=== PATIENT | female | born 2005 | race Caucasian/White ===

== ENCOUNTER 2023-05-27 22:27 | Emergency (ER) | payer OTHER, SELFPAY ==
[2023-05-27 22:35] VITALS: BP 131/75; PULSE 114; RESP 16; TEMP 36.9; O2SAT 100; BMI 20.5
--- NOTE | 2023-05-28 00:03 | ED.WOUNDLAC ---
HPI - Wound/Laceration General Chief Complaint: Wound/Laceration Stated Complaint: lip laceration Time Seen by Provider: 05/27/23 23:04 Related Data Allergies Allergy/AdvReac Type Severity Reaction Status Date / Time amoxicillin Allergy Rash Verified 05/27/23 22:35 PMFSH Social History Social History Smoked in Last 30 Days: No Use of substances other than those prescribed or required for medical reasons: No Advance Directives: No Advance Directives Information Provided: No Patient : No Physical Exam Vital Signs: Vital Signs: Last Vital Signs Temp 98.5 F 05/27/23 22:35 Pulse 114 H 05/27/23 22:35 Resp 16 05/27/23 22:35 BP 131/75 05/27/23 22:35 Pulse Ox 100 05/27/23 22:35 O2 Del Method Room Air 05/27/23 22:35 BMI result Body Mass Index 20.5 Procedures Laceration Laceration 1: Site: lip Side (If applicable): right Size (cm): 1 Description: linear Depth: simple, single layer Local Anesthetic: lidocaine 1% Amount of anesthesia used (mL): 1 Pre-repair: wound explored, irrigated extensively and deep structures intact Skin layer closed with: other (Chromic gut) Size (cm): 5-0 Number of sutures: 1 Technique: simple, interrupted Subcutaneous layer closed with: chromic gut Size: 5-0 Number of sutures: 2 Technique: simple, interrupted Discharge Plan Discharge Clinical Impression: Laceration of lip Patient Disposition: Home, Self-Care Instructions: Facial Laceration (ED), Laceration (ED), Care For Your Stitches (ED) Additional Instructions: 1. Recommend [id number] Tylenol/ibuprofen as needed for pain control. 2. You do not need to return anywhere as these are dissolvable sutures (stitches). 3. I highly recommend rinsing her mouth thoroughly after eating and drinking. Would consider rinsing mouth with saline (warm tap water with table salt) and spitting out. Return to the ER for any worsening symptoms.
== END 2023-05-28 00:10 | disposition home or self-care (01) ==
PROVIDERS: Emergency Provider Student in an Organized Health Care Education/Training Program
DX: S01.511A Laceration without foreign body of lip, initial encounter (principal); W03.XXXA Other fall on same level due to collision with another person, initial encounter; Y93.9 Activity, unspecified; Y92.9 Unspecified place or not applicable; Y99.9 Unspecified external cause status
CPT/HCPCS: 12011; 99284